=== PATIENT | male | born 1985 | race Caucasian/White ===

== ENCOUNTER 2021-04-03 13:59 | Emergency (ER) | payer OTHER ==
[~2021-04-03] VITALS: Wt 68.0 kg
[~2021-04-03 13:59] MED LIST: A-CILLIN500 MG PO; ACYCLOVIR400 MG PO; ANAPROX DS550 MG PO; CORTISPORIN SUS10 ML OT; MOTRIN800 MG PO
== END 2021-04-03 16:31 | disposition home or self-care (01) ==
LOC: ED 13:59
DX: S93.401A Sprain of unspecified ligament of right ankle, initial encounter (principal); X58.XXXA Exposure to other specified factors, initial encounter; Y93.89 Activity, other specified; Y92.89 Other specified places as the place of occurrence of the external cause; Y99.8 Other external cause status

== ENCOUNTER 2022-10-07 23:46 | Emergency (ER) | payer OTHER ==
[~2022-10-07] VITALS: Ht 165.1 cm; Wt 93.9 kg
[2022-10-08] MEDS ORDERED: CLINDAMYCIN HC300 MG PO (01:10)
[2022-10-08] MEDS ORDERED: MOTRIN 600 MG E4 TAB PO (01:10)
== END 2022-10-08 01:41 | disposition admitted as inpatient to this hospital (09) ==
LOC: ED 23:46
DX: K04.7 Periapical abscess without sinus (principal)